=== PATIENT | female | born 1965 | race African-American/Black ===

== ENCOUNTER 2020-10-07 12:29 | Inpatient (IN) ==
[2020-10-07] MEDS ORDERED: ANCEF 1 GRAM IV PREMIX* 2 G/100 ML BAG IV ONE (12:36)
[2020-10-07] MEDS ORDERED: LR 1000 ML IV 1,000 ML IV ONE ×2 (12:36→16:33)
[2020-10-07] MEDS ORDERED: FENTANYL INJ 250 mcg ONE (12:54)
[2020-10-07] MEDS ORDERED: ZEMURON 50 MG VIAL ONE (12:54)
[2020-10-07] MEDS ORDERED: NAROPIN 0.75% EPI ONE (12:54)
[2020-10-07] MEDS ORDERED: OFIRMEV IV 1000 MG VIAL 1,000 MG/100 ML VIAL IV ONE (12:54)
[2020-10-07] MEDS ORDERED: BRIDION ONE (12:54)
[2020-10-07] MEDS ORDERED: MARCAINE 0.25% INJ ONE (13:02)
[2020-10-07 13:32] VITALS: BMI 30.8
[2020-10-07] MEDS ORDERED: DIPRIVAN VIAL ONE (15:09)
[2020-10-07] MEDS ORDERED: ZOFRAN INJ 4 MG VIAL ONE (15:09)
[2020-10-07] MEDS ORDERED: DECADRON INJ ONE (15:09)
[2020-10-07] MEDS ORDERED: XYLOCAINE 2 % (PLAIN) ONE (15:09)
[2020-10-07] MEDS ORDERED: EPHEDRINE SULFATE INJ ONE (15:09)
[2020-10-07] MEDS ORDERED: VERSED ONE (15:09)
[2020-10-07] MEDS ORDERED: SUPRANE ONE (15:09)
[2020-10-07] MEDS ORDERED: ZOFRAN INJ 4 MG VIAL IVP PRN ×2 (17:12→17:16)
[2020-10-07] MEDS ORDERED: PHENERGAN INJ 25 MG IM PRN (17:12)
[2020-10-07] MEDS ORDERED: DILAUDID INJ IVP PRN (17:12)
[2020-10-07] MEDS ORDERED: REGLAN INJ 10 MG VIAL IVP PRN (17:12)
[2020-10-07] MEDS ORDERED: BENADRYL INJ 50 MG VIAL IVP PRN (17:12)
[2020-10-07] MEDS ORDERED: DILAUDID INJ ONE (17:16)
[2020-10-07] MEDS: ROXICODONE TAB 5 MG PO PRN (21:01)
[2020-10-07] MEDS: COLACE CAP 100 MG PO SCH (21:12)
[2020-10-08] MEDS: ROXICODONE TAB 5 MG PO PRN ×3 (03:56→20:15)
[2020-10-08] MEDS: ZOFRAN INJ 4 MG VIAL IVP PRN ×2 (08:00→23:21)
[2020-10-08] MEDS: DILAUDID INJ IVP PRN ×5 (08:06→23:20)
[2020-10-08] MEDS ORDERED: PHENERGAN INJ 25 MG IM ONE (08:27)
[2020-10-08] MEDS: LOVENOX INJ 40 MG SYR SC SCH (08:45)
[2020-10-08] MEDS: PAXIL PO SCH (10:56)
[2020-10-08] MEDS: ZESTRIL TAB 10 MG PO SCH (10:56)
[2020-10-08] MEDS: NORVASC TAB 5 MG PO SCH (10:56)
[2020-10-08] MEDS: PriLOSEC PO SCH (10:56)
[2020-10-08] MEDS: LR 1000 ML IV 1,000 ML IV SCH ×2 (10:56→18:13)
[2020-10-08] MEDS: KLONOPIN TAB 1 MG PO SCH ×3 (10:56→22:00)
[2020-10-08] MEDS: NEVIRAPINE 200 MG PO SCH ×3 (10:57→20:14)
[2020-10-08] MEDS: EMTRICITABINE TENOFOVIR PO SCH ×2 (10:57→11:30)
[2020-10-08] MEDS: COLACE CAP 100 MG PO SCH (20:14)
[2020-10-09] MEDS: LR 1000 ML IV 1,000 ML IV SCH ×3 (02:27→20:05)
[2020-10-09] MEDS: DILAUDID INJ IVP PRN ×3 (04:32→20:04)
[2020-10-09] MEDS: KLONOPIN TAB 1 MG PO SCH ×3 (06:00→21:13)
[2020-10-09] MEDS: LOVENOX INJ 40 MG SYR SC SCH (07:59)
[2020-10-09] MEDS: EMTRICITABINE TENOFOVIR PO SCH (08:01)
[2020-10-09] MEDS: NEVIRAPINE 200 MG PO SCH ×2 (08:01→20:12)
[2020-10-09] MEDS: ZESTRIL TAB 10 MG PO SCH (08:03)
[2020-10-09] MEDS: PAXIL PO SCH (08:03)
[2020-10-09] MEDS: NORVASC TAB 5 MG PO SCH (08:03)
[2020-10-09] MEDS: PriLOSEC PO SCH (08:04)
[2020-10-09] MEDS: ROXICODONE TAB 5 MG PO PRN ×2 (08:05→15:21)
[2020-10-09] MEDS: COLACE CAP 100 MG PO SCH (20:03)
[2020-10-09] MEDS: ZOFRAN INJ 4 MG VIAL IVP PRN (20:05)
[2020-10-10] MEDS: DILAUDID INJ IVP PRN ×6 (01:32→23:59)
[2020-10-10] MEDS: LR 1000 ML IV 1,000 ML IV SCH ×5 (04:25→20:04)
[2020-10-10] MEDS: ROXICODONE TAB 5 MG PO PRN ×2 (04:26→08:56)
[2020-10-10] MEDS: KLONOPIN TAB 1 MG PO SCH ×3 (05:24→21:35)
[2020-10-10 06:02] LABS: BASOPHILS % (AUTO) 0.3 % (0.2-1.0); EOSINOPHILS # (AUTO) 0.1 x10^3/uL (0.0-0.2); HEMATOCRIT 31.1 % (36.0-47.0); HEMOGLOBIN 10.6 g/dL (12.0-16.0); LYMPHOCYTES # (AUTO) 2.9 X10^3/uL (1.3-2.9); LYMPHOCYTES % (AUTO) 55.2 % (21.0-51.0); MEAN CORPUSCULAR HEMOGLOBIN 30.8 pg (27.0-34.0); MEAN CORPUSCULAR HGB CONC 34.1 g/dL (33.0-35.0); MEAN CORPUSCULAR VOLUME 90.5 fL (80.0-100.0); MEAN PLATELET VOLUME 8.3 fL (7.4-11.0); MONOCYTES # (AUTO) 0.5 x10^3/uL (0.3-0.8); NEUTROPHILS # (AUTO) 1.8 x10^3/uL (2.2-4.8); NEUTROPHILS % (AUTO) 34.5 % (42.0-75.0); PLATELET COUNT 174 X10^3/uL (150.0-450.0); RED BLOOD COUNT 3.44 X10^6/uL (3.5-5.4); RED CELL DISTRIBUTION WIDTH 13.2 % (11.6-16.5); WHITE BLOOD COUNT 5.3 X10^3/uL (3.6-10.0)
[2020-10-10 06:13] LABS: ALANINE AMINOTRANSFERASE 28 Units/L (12-78); ALBUMIN 2.9 g/dL (3.4-5.0); ALKALINE PHOSPHATASE 74 Units/L (46-116); ASPARTATE AMINO TRANSFERASE 40 Units/L (15-37); BLOOD UREA NITROGEN 8 mg/dL (7-18); CALCIUM 8.3 mg/dL (8.5-10.1); CARBON DIOXIDE 30.7 mmol/L (21-32); CHLORIDE 105 mmol/L (98-107); COR CA(FOR HYPOALB) 9.2 mg/dL (8.5-10.1); CREATININE 0.76 mg/dL (0.55-1.02); SODIUM 142 mmol/L (136-145); eGFR NON BLACK RACES > 60 (>60)
[2020-10-10] MEDS: ZOFRAN INJ 4 MG VIAL IVP PRN ×2 (06:17→20:06)
[2020-10-10] MEDS: COLACE CAP 100 MG PO SCH ×3 (08:52→21:12)
[2020-10-10] MEDS: LINZESS PO SCH (08:52)
[2020-10-10] MEDS: EMTRICITABINE TENOFOVIR PO SCH (08:52)
[2020-10-10] MEDS: NEVIRAPINE 200 MG PO SCH ×2 (08:53→20:05)
[2020-10-10] MEDS: NORVASC TAB 5 MG PO SCH (08:53)
[2020-10-10] MEDS: PAXIL PO SCH (08:53)
[2020-10-10] MEDS: PriLOSEC PO SCH (08:53)
[2020-10-10] MEDS: ZESTRIL TAB 10 MG PO SCH (08:54)
[2020-10-10] MEDS: LOVENOX INJ 40 MG SYR SC SCH (08:54)
[2020-10-11] MEDS: LR 1000 ML IV 1,000 ML IV SCH ×3 (04:22→18:16)
[2020-10-11] MEDS: DILAUDID INJ IVP PRN ×4 (04:41→20:21)
[2020-10-11] MEDS: KLONOPIN TAB 1 MG PO SCH ×3 (05:30→21:30)
[2020-10-11] MEDS: EMTRICITABINE TENOFOVIR PO SCH (08:33)
[2020-10-11] MEDS: NEVIRAPINE 200 MG PO SCH ×2 (08:33→20:21)
[2020-10-11] MEDS: LOVENOX INJ 40 MG SYR SC SCH (08:34)
[2020-10-11] MEDS: PAXIL PO SCH (08:34)
[2020-10-11] MEDS: ZESTRIL TAB 10 MG PO SCH (08:35)
[2020-10-11] MEDS: NORVASC TAB 5 MG PO SCH (08:35)
[2020-10-11] MEDS: LINZESS PO SCH (08:35)
[2020-10-11] MEDS: PriLOSEC PO SCH (08:37)
[2020-10-11] MEDS ORDERED: CITROMA PO ONE (10:31)
[2020-10-11] MEDS: COLACE CAP 100 MG PO SCH ×3 (10:40→20:22)
[2020-10-11] MEDS: ROXICODONE TAB 5 MG PO PRN (12:00)
[2020-10-11] MEDS ORDERED: POTASSIUM CHL 40 MEQ/NS 0.45% 500 ML IV PRN (15:35)
[2020-10-11] MEDS ORDERED: K-RIDER 10 MEQ/NS 100 ML 10 MEQ/100 ML BAG IV PRN (15:35)
[2020-10-11] MEDS ORDERED: K-DUR TAB 20 MEQ PO PRN (15:35)
[2020-10-11] MEDS ORDERED: POTASSIUM CHLORIDE LIQ 20 MEQ UDC PO PRN (15:35)
[2020-10-11] MEDS ORDERED: POTASSIUM CHL 60 MEQ/NS 0.45% 500 ML IV PRN (15:35)
[2020-10-11] MEDS ORDERED: KLOR-CON PO PRN (15:35)
[2020-10-11] MEDS ORDERED: MICRO K EXTEN CAP 10 MEQ PO PRN (15:35)
[2020-10-11] MEDS: ZOFRAN INJ 4 MG VIAL IVP PRN (20:21)
[2020-10-12] MEDS: DILAUDID INJ IVP PRN ×3 (00:56→11:41)
[2020-10-12] MEDS: ROXICODONE TAB 5 MG PO PRN ×2 (03:42→08:25)
[2020-10-12] MEDS: LR 1000 ML IV 1,000 ML IV SCH ×3 (03:43→10:08)
[2020-10-12] MEDS: KLONOPIN TAB 1 MG PO SCH (05:45)
[2020-10-12] MEDS: ZOFRAN INJ 4 MG VIAL IVP PRN (05:51)
[2020-10-12] MEDS: PriLOSEC PO SCH (08:15)
[2020-10-12] MEDS: COLACE CAP 100 MG PO SCH (08:15)
[2020-10-12] MEDS: ZESTRIL TAB 10 MG PO SCH (08:15)
[2020-10-12] MEDS: NORVASC TAB 5 MG PO SCH (08:16)
[2020-10-12] MEDS: PAXIL PO SCH (08:16)
[2020-10-12] MEDS: EMTRICITABINE TENOFOVIR PO SCH (08:19)
[2020-10-12] MEDS: NEVIRAPINE 200 MG PO SCH (08:21)
[2020-10-12] MEDS: LOVENOX INJ 40 MG SYR SC SCH (08:28)
[2020-10-12] MEDS: LINZESS PO SCH (08:30)
[2020-10-12 12:57] VITALS: BP 150/67
== END 2020-10-12 13:50 | DRG 566 ==
LOC: SURG1 12:29 → MED/SURG 12:29
PROVIDERS: ADMIT Obstetrics & Gynecology Obstetrics; ATTEND Obstetrics & Gynecology Obstetrics
PROC: [UNRECOGNIZED PROCEDURE] (2020-10-07 14:15)
DX: R11.0 Nausea; G89.18 Other acute postprocedural pain; Z20.822 Contact with and (suspected) exposure to COVID-19; R26.2 Difficulty in walking, not elsewhere classified; M21.172 Varus deformity, not elsewhere classified, left ankle; M25.472 Effusion, left ankle; M24.272 Disorder of ligament, left ankle; M21.6X2 Other acquired deformities of left foot